=== PATIENT | male | born 1990 | race Caucasian/White ===

== ENCOUNTER 2017-03-03 21:17 | Observation (INO) | payer SELFPAY ==
[2017-03-03] MEDS ORDERED: ONDANSETRON 4 MG ODT BU ONE ×2 (21:35→22:15)
[2017-03-03] MEDS ORDERED: ONDANSETRON 4 MG ODT ONE ×2 (21:36→22:16)
[2017-03-03] MEDS ORDERED: LORAZEPAM 2 MG/ML SOL IM ONE (22:09)
[2017-03-03] MEDS ORDERED: LORAZEPAM 2 MG/ML SOL ONE (22:11)
[2017-03-03] MEDS ORDERED: PROMETHAZINE HYDROCHLORIDE 25 MG/ML SOL IV ONE (22:26)
[2017-03-03] MEDS: SODIUM CHLORIDE 0.9% FLUSH 10 ML SOL IV PRN ×2 (22:35→22:45)
[2017-03-03] MEDS ORDERED: PROMETHAZINE HYDROCHLORIDE 25 MG/ML SOL ONE (22:42)
[2017-03-03] MEDS: SODIUM CHLORIDE 0.9% 1000 ML SOL IV SCH (22:45)
[2017-03-04] MEDS ORDERED: SODIUM CHLORIDE 0.9% IV PRN (00:08)
[2017-03-04] MEDS ORDERED: ONDANSETRON HCL IV PRN (00:08)
[2017-03-04] MEDS ORDERED: IBUPROFEN 400 MG TAB PO PRN (00:12)
[2017-03-04] MEDS ORDERED: [UNRECOGNIZED DRUG - MIXTURE] PO PRN (00:12)
[2017-03-04] MEDS ORDERED: ZOLPIDEM TARTRATE 5 MG TAB PO PRN (00:13)
[2017-03-04] MEDS ORDERED: SODIUM CHLORIDE 0.9% 1000 ML SOL IV SCH (00:15)
[2017-03-04] MEDS ORDERED: ONDANSETRON HCL 4 MG/2 ML SOL IV ONE (00:19)
[2017-03-04 00:33] VITALS: O2SAT 98
[2017-03-04] MEDS: SODIUM CHLORIDE 0.9% FLUSH 10 ML SOL IV PRN ×2 (00:33→06:51)
[2017-03-04] MEDS: METOCLOPRAMIDE HYDROCHLORIDE 5 MG/ML SOL IV SCH ×3 (00:34→13:40)
[2017-03-04] MEDS: SODIUM CHLORIDE 0.9% 1000 ML SOL IV SCH (00:40)
[2017-03-04] MEDS: SODIUM CHLORIDE 0.9% 1000ML 1,000 ML IV SCH ×2 (00:42→08:35)
[2017-03-04 07:15] LABS: AMPHETAMINES NEGATIVE (NEGATIVE); METHADONE NEGATIVE (NEGATIVE); OPIATES(OP13) NEGATIVE (NEGATIVE); OXYCODONE(OXY) NEGATIVE (NEGATIVE); PROPOXYPHENE(PPX) NEGATIVE (NEGATIVE); TRICYCLIC ANTIDEPRESSANTS NEGATIVE (NEGATIVE)
[2017-03-04 07:23] LABS: CALCIUM 8.4 mg/dl (8.5-10.1); POTASSIUM 3.6 mMol/L (3.5-5.1)
[2017-03-04 07:27] LABS: BASOPHILS % (AUTO) 0 % (0-3); EOSINOPHILS % (AUTO) 0 % (0-9); HEMATOCRIT 41 % (39-53); MEAN CORPUSCULAR HGB CONC 35.9 gm/dl (32.0-36.0); MEAN CORPUSCULAR VOLUME 86 fL (80-100); MONOCYTES % (AUTO) 6.8 % (0-12); NEUTROPHILS % (AUTO) 81.8 % (37-80)
[2017-03-04 08:36] VITALS: BP 119/67; PULSE 78; RESP 12; TEMP 98.6
== END 2017-03-04 14:10 | disposition home or self-care (01) | DRG 392 ==
LOC: ED 21:17 → ACUTE CARE 03-04 00:02
PROVIDERS: ADMIT Emergency Medicine; ATTEND Emergency Medicine
DX: K52.9 Noninfective gastroenteritis and colitis, unspecified (principal); G43.A0 Cyclical vomiting, in migraine, not intractable
CPT/HCPCS: 36415; 80048; 80305; 85025; 86308; 87430; 99285; J2060; J2405; J2550; J2765